=== PATIENT | male | born 1960 | race Caucasian/White ===

== ENCOUNTER 2018-11-26 22:42 | Emergency (ER) | payer MEDICARE ==
--- NOTE | 2018-11-26 23:41 | EDM.PDOC ---
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 He had his voice box removed and he has a trach. This was done 10 days ago. He has been bring out alot of bright red blood from the trach today. Onset: Today Duration: Hour(s): Location: Reports: Chest, Other ( blood coming friom the trach. ) Associated Symptoms: Reports: Cough, Other ( blood coming from the trach. ) Throat Pain Score (Numeric/FACES): 7 - Related Data Allergies Allergy/AdvReac Type Severity Reaction Status Date / Time No Known Allergies Allergy Verified 11/26/18 23:35 Home Meds: Home Meds Acetaminophen 160 mg GTUBE Q6H PRN 11/26/18 [History] Calcium Carbonate/Vitamin D3 [Calcium Carb 500 MG] 1 each GTUBE Q4H PRN [History] Docusate Sodium [Diocto] 10 mg GTUBE DAILY 11/26/18 [History] Lansoprazole 30 mg GTUBE DAILY 11/26/18 [History] Methadone 10 mg GTUBE Q4H PRN 11/26/18 [History] Metoprolol Tartrate 25 mg GTUBE BID 11/26/18 [History] Ranitidine [Zantac] 15 mg GTUBE BID PRN 11/26/18 [History] oxyCODONE [oxyCODONE 20 MG/ML Soln] 10 mg GTUBE Q6H PRN 11/26/18 [History] ED ROS ENT - Review of Systems Review Of Systems: See Below Constitutional: Reports: No Symptoms HEENT: Reports: Other ( blood coming from the trach area. ) Respiratory: Reports: No Symptoms Cardiovascular: Reports: No Symptoms, Other (hypotension) Endocrine: Reports: No Symptoms GI/Abdominal: Reports: No Symptoms : Reports: No Symptoms Musculoskeletal: Reports: No Symptoms Skin: Reports: No Symptoms ED EXAM, ENT - Physical Exam Exam: See Below Text/Narrative:: pt arrived because he had blood coming from his trach. He also had some blood coming from his nose. He has been very weak and dizzy for the past few days. Exam Limited By: No Limitations General Appearance: Alert, Anxious, Moderate Distress, Other (pt states he is having pain. ) Ears: Normal TMs Nose: Normal Inspection Mouth/Throat: Normal Inspection Head: Atraumatic Neck: Other (pt has some dried blood coming from the trach. He evidently coughed up alot of blood and mucous earlier today. ) Respiratory/Chest: No Respiratory Distress Cardiovascular: Regular Rate, Rhythm GI/Abdominal: Soft, Non-Tender (Male) Exam: Deferred Rectal (Males) Exam: Deferred Back: Normal Inspection Extremities: Normal Inspection Neurological: Alert, Oriented, Normal Cognition, Other (pt is not able to communicate well. ) Psychiatric: Depressed Mood Course - Vital Signs Last Recorded V/S: Last Vital Signs Temp 36.7 C 11/26/18 23:54 Pulse 71 11/27/18 00:25 Resp 16 11/27/18 00:25 BP 112/58 L 11/27/18 00:25 Pulse Ox 90 L 11/27/18 00:25 - Orders/Labs/Meds Labs: Laboratory Tests 11/26/18 11/26/18 11/26/18 Range/Units 00:02 00:02 23:52 WBC 14.7 H (4.5-11.0) K/uL RBC 2.99 L (4.30-5.90) M/uL Hgb 9.2 L (12.0-15.0) g/dL Hct 28.0 L (40.0-54.0) % MCV 94 (80-98) fL MCH 31 (27-31) pg MCHC 33 (32-36) % Plt Count 476 H (150-400) K/uL Neut % (Auto) 80 H (36-66) % Lymph % (Auto) 12 L (24-44) % [place] % (Auto) 7 H (2-6) % Eos % (Auto) 1 L (2-4) % Baso % (Auto) 0 (0-1) % Sodium 133 L (140-148) mmol/L Potassium 5.4 H (3.6-5.2) mmol/L Chloride 98 L (100-108) mmol/L Carbon Dioxide 32 (21-32) mmol/L Anion Gap 8.4 (5.0-14.0) mmol/L BUN 35 H (7-18) mg/dL Creatinine 1.1 (0.8-1.3) mg/dL Est Cr Clr Drug Dosing 67.35 mL/min Estimated GFR (MDRD) > 60 (>60) Glucose 94 (74-106) mg/dL Calcium 9.4 (8.5-10.1) mg/dL Total Bilirubin 0.4 (0.2-1.0) mg/dL AST 25 (15-37) U/L ALT 29 (12-78) U/L Alkaline Phosphatase 119 H (46-116) U/L Total Protein 7.4 (6.4-8.2) g/dL Albumin 3.5 (3.4-5.0) g/dL Globulin 3.9 H (2.3-3.5) g/dL Albumin/Globulin Ratio 0.9 L (1.2-2.2) Urine Color Yellow (YELLOW) Urine Appearance Clear (CLEAR) Urine pH 8.5 H (5.0-8.0) Ur Specific [place] 1.015 (1.008-1.030) Urine Protein Negative (NEGATIVE) mg/dL Urine Glucose (UA) Normal (NEGATIVE) mg/dL Urine Ketones Negative (NEGATIVE) mg/dL Urine Occult Blood Negative (NEGATIVE) Urine Nitrite Negative (NEGATIVE) Urine Bilirubin Negative (NEGATIVE) Urine Urobilinogen 1 (0.2-1.0) EU/dL Ur Leukocyte Esterase Negative (NEGATIVE) Urine RBC 0-5 (0-5) Urine WBC 0-5 (0-5) Ur Epithelial Cells Few Amorphous Sediment Few Urine Bacteria Few Urine Mucus Not seen Meds: Medications Discontinued Medications Generic Name Dose Route Start Last Admin Trade Name Arnol PRN Reason Stop Dose Admin Cephalexin 500 mg 11/27/18 01:15 11/27/18 02:04 Keflex 250 Mg/5 Ml Susp PO 11/27/18 01:16 500 mg ONETIME ONE Administration Hydromorphone HCl 1 mg 11/26/18 23:58 11/27/18 00:04 Dilaudid IVPUSH 11/26/18 23:59 1 mg ONETIME ONE Administration Sodium Chloride 1,000 mls @ 999 mls/hr 11/26/18 23:45 11/27/18 00:05 Normal Saline IV 999 mls/hr ASDIRECTED FARZAD Administration Sodium Chloride 1,000 mls @ 500 mls/hr 11/27/18 01:15 11/27/18 02:05 Normal Saline IV 500 mls/hr ASDIRECTED FARZAD Administration - Re-Assessments/Exams Free Text/Narrative Re-Assessment/Exam: 11/27/18 01:17 pt had a mild elevation in his wbc. His bp was low and he was hydrated. He had not done trach care today so that was done and he was showed how to do this. He might have a slight infection in the trach aarea. He was placed on keflex 500mg susp tid. 11/27/18 18:46 pt did not have sig bleeding from the trach and he was taught how to care for it. Departure - Departure Time of Disposition: 02:40 Disposition: Home, Self-Care 01 Condition: Fair Clinical Impression: Tracheostomy care, Tracheostomy hemorrhage, Cancer of larynx, Uses feeding tube - Discharge Information Instructions: How to Change a Cuffed Tracheostomy Tube, How to Suction a Tracheostomy, Tracheostomy and Tracheostomy Tube Safety and Care, Adult, How to Clean a Tracheostomy Tube, Adult Referrals: Robert Ponce MD [Primary Care Provider] - Forms: ED Department Discharge Care Plan Goals: Continue with feedings the same. Use an extra 50 mls of water with each feeding. Take Ativan 1 mg at bedtime to relax. Do good trach care regularly. Keflex 500mg three times a day for 1 week for possible infection in trach. Use a cool mist humidifier at the bedside.
[2018-11-26] MEDS ORDERED: Sodium Chloride 0.9% 1,000 ML IV SCH (23:45)
[2018-11-26] MEDS ORDERED: HYDROmorphone 1 MG/ML Syringe IVPUSH ONE (23:58)
[2018-11-27] MEDS ORDERED: Cephalexin 250 MG/5 ML Susp 100 ML Bottle PO ONE (01:15)
[2018-11-27] MEDS ORDERED: Sodium Chloride 0.9% 1,000 ML IV SCH (01:15)
--- NOTE | 2018-11-27 01:56 | CRLCR ---
INDICATION: Blood from tracheostomy. TECHNIQUE: Chest 1 view COMPARISON: None FINDINGS: Cardiovascular and mediastinum: Tracheostomy tube is centered at the midtrachea level. Normal heart size. Minimal aortic tortuosity. Lungs and pleural spaces: No pleural effusion or pneumothorax. No acute consolidation. Bones and soft tissues: No significant findings. IMPRESSION: Tracheostomy overlies the mid trachea level. No acute pulmonary consolidation. Dictated by Ignacio Quintana MD @ Nov 27 2018 1:52AM Signed by Dr. Ignacio Quintana @ Nov 27 2018 1:53AM
== END 2018-11-27 02:38 | disposition home or self-care (01) ==
LOC: JP.ED 22:42
DX: J95.01 Hemorrhage from tracheostomy stoma (principal); C32.9 Malignant neoplasm of larynx, unspecified; Z79.899 Other long term (current) drug therapy
CPT/HCPCS: 36415; 71045; 80053; 81001; 85025; 96361; 96374; 99283; A9270; J1170; J7030

== ENCOUNTER 2018-12-01 19:51 | Emergency (ER) | payer MEDICARE ==
[2018-12-01] MEDS ORDERED: Sodium Chloride 0.9% 10 ML Syringe FLUSH PRN (21:30)
[2018-12-01] MEDS ORDERED: Metoclopramide 10 MG/2 ML SDV IVPUSH ONE (21:40)
--- NOTE | 2018-12-01 21:54 | CRLCR ---
INDICATION: Purulent cough. Recent tracheostomy tube placement. TECHNIQUE: Chest 2 views COMPARISON: November 27, 2018. FINDINGS: Cardiovascular and mediastinum: Heart size and vasculature are normal in caliber and appearance. Lungs and pleural spaces: Lungs are clear. No sign of infiltrate or mass. No sign of pleural effusion. No pneumothorax. Bones and soft tissues: No significant findings. IMPRESSION: Lungs are clear. No sign of pneumonia. Dictated by Girma Chen MD @ 12/01/2018 9:54:01 PM Dictated by: Girma Chen MD @ 12/01/2018 21:54:03 (Electronically Signed)
--- NOTE | 2018-12-01 22:01 | EDM.PDOC ---
ED HPI GENERAL MEDICAL PROBLEM - General Chief Complaint: Gastrointestinal Problem Stated Complaint: VOMITING Time Seen by Provider: 12/01/18 21:20 Source of Information: Reports: Patient History Limitations: Reports: Other (Recent Tracheostomy. Unable to talk at this time) - History of Present Illness INITIAL COMMENTS - FREE TEXT/NARRATIVE: 58 yr old male present with friend for evaluation of cough and vomiting. Patient was evaluation in the [facility] on November 26 due to bleeding for post surgical tracheostomy site. Patient was discharge home and Keflex for possible localized skin infection. Patient was not complaining of nausea/ vomiting during previous visit. Patient had tracheostomy completed in [facility] due to cancer. Patient denies urinary symptoms, diarrhea or constipations. Patient has been vomiting for the last 2 days with decreased appetite. Patient is able to answer yes and not questions. He has a slight headache but denies fever. - Related Data Allergies Allergy/AdvReac Type Severity Reaction Status Date / Time No Known Allergies Allergy Verified 12/01/18 20:24 Home Meds: Home Meds Acetaminophen 160 mg GTUBE Q6H PRN 11/26/18 [History] Calcium Carbonate/Vitamin D3 [Calcium Carb 500 MG] 1 each GTUBE Q4H PRN [History] Docusate Sodium [Diocto] 10 mg GTUBE DAILY 11/26/18 [History] Lansoprazole 30 mg GTUBE DAILY 11/26/18 [History] Methadone 10 mg GTUBE Q4H PRN 11/26/18 [History] Metoprolol Tartrate 25 mg GTUBE BID 11/26/18 [History] Ranitidine [Zantac] 15 mg GTUBE BID PRN 11/26/18 [History] oxyCODONE [oxyCODONE 20 MG/ML Soln] 10 mg GTUBE Q6H PRN 11/26/18 [History] Metoclopramide [Reglan] 5 - 10 mg PO Q6H PRN 5 Days #20 tab 12/01/18 [Rx] Ondansetron [Zofran ODT] 4 mg PO Q6H PRN 2 Days #4 tab.dis 12/01/18 [Rx] Past Medical History HEENT History: Reports: Impaired Vision Cardiovascular History: Reports: Hypertension Gastrointestinal History: Reports: GERD Musculoskeletal History: Reports: Back Pain, Chronic - Past Surgical History Other HEENT Surgeries/Procedures: 10 days ago had tracheostomy and tube feeding placed Respiratory Surgical History: Reports: Tracheostomy Social & Family History - Family History Family Medical History: Noncontributory - Tobacco Use Smoking Status *Q: Never Smoker - Caffeine Use Caffeine Use: Reports: None ED ROS ENT - Review of Systems Review Of Systems: Unable To Obtain (answers yes and no questions unable to give details) ED EXAM, ENT - Physical Exam Exam: See Below Exam Limited By: Other (tracheostomy and unable to speak but write answers) General Appearance: Alert, Mild Distress, Thin, Other (very oily and unkempt. Smells ketotic ) Eye Exam: Bilateral Eye: EOMI, PERRL Ears: Normal External Exam, Normal Canal, Hearing Grossly Normal, Normal TMs Nose: Normal Inspection, Normal Mucousa, No Blood Mouth/Throat: Normal Inspection (dry ), Normal Gums, Normal Lips, Normal Oropharynx, Normal Teeth Head: Atraumatic, Normocephalic Neck: Normal Inspection (open trach site with purulent mucus noted. Incisions healing well with slgith erythema likely secondary to mucus and chronc wet area) , Supple, Non-Tender, Full Range of Motion Respiratory/Chest: No Respiratory Distress, Lungs Clear, Normal Breath Sounds Cardiovascular: Normal Peripheral Pulses, Regular Rate, Rhythm GI/Abdominal: Normal Bowel Sounds, Soft, Non-Tender, Other (thin) Back: Normal Inspection, Full Range of Motion Extremities: Normal Inspection, Normal Range of Motion, Non-Tender, No Pedal Edema, Normal Capillary Refill Neurological: Alert, Oriented, CN II-XII Intact, Normal Gait, Normal Reflexes Psychiatric: Normal Affect, Normal Mood Skin: Warm, Dry, Intact, Normal Color, No Rash Course - Vital Signs Last Recorded V/S: Last Vital Signs Temp 36.8 C 12/01/18 20:30 Pulse 95 12/01/18 20:30 Resp 14 12/01/18 20:30 BP 96/62 12/01/18 20:30 Pulse Ox 93 L 12/01/18 20:30 - Orders/Labs/Meds Orders: Active Orders 24 hr Category Date Time Status Peripheral IV Care [RC] . DIRECTED Care 12/01/18 21:30 Active Vital Signs [RC] PFP Care 12/01/18 23:01 Ordered UA W/MICROSCOPIC [URIN] Stat Lab 12/01/18 21:40 Ordered Lactated Ringers [Ringers, Lactated] 1,000 ml Med 12/01/18 22:08 Active IV BOLUS Lactated Ringers [Ringers, Lactated] 1,000 ml Med 12/01/18 22:36 Active IV BOLUS Sodium Chloride 0.9% [Saline Flush] Med 12/01/18 21:30 Active 10 ml FLUSH ASDIRECTED PRN Peripheral IV Insertion Adult [OM.PC] Urgent Oth 12/01/18 21:30 Ordered Medication Orders Lactated Ringer's (Ringers, Lactated) 1,000 mls @ 1,000 mls/hr IV BOLUS ONE Stop: 12/01/18 23:07 Last Admin: 12/01/18 22:16 Dose: 1,000 mls/hr Lactated Ringer's (Ringers, Lactated) 1,000 mls @ 1,000 mls/hr IV BOLUS ONE Stop: 12/01/18 23:35 Last Admin: 12/01/18 22:51 Dose: 1,000 mls/hr Sodium Chloride (Saline Flush) 10 ml FLUSH ASDIRECTED PRN PRN Reason: Keep Vein Open Last Admin: 12/01/18 22:16 Dose: 10 ml Labs: Laboratory Tests 12/01/18 12/01/18 12/01/18 Range/Units 21:41 21:41 21:41 WBC 8.0 (4.5-11.0) K/uL RBC 2.95 L (4.30-5.90) M/uL Hgb 9.0 L (12.0-15.0) g/dL Hct 27.5 L (40.0-54.0) % MCV 93 (80-98) fL MCH 31 (27-31) pg MCHC 33 (32-36) % Plt Count 600 H (150-400) K/uL Neut % (Auto) 79 H (36-66) % Lymph % (Auto) 9 L (24-44) % [place] % (Auto) 12 H (2-6) % Eos % (Auto) 0 L (2-4) % Baso % (Auto) 0 (0-1) % Sodium 134 L (140-148) mmol/L Potassium 4.6 (3.6-5.2) mmol/L Chloride 95 L (100-108) mmol/L Carbon Dioxide 26 (21-32) mmol/L Anion Gap 17.6 H (5.0-14.0) mmol/L BUN 23 H (7-18) mg/dL Creatinine 1.1 (0.8-1.3) mg/dL Est Cr Clr Drug Dosing 64.95 mL/min Estimated GFR (MDRD) > 60 (>60) Glucose 76 (74-106) mg/dL Lactic Acid 1.2 (0.4-2.0) mmol/L Calcium 9.4 (8.5-10.1) mg/dL Total Bilirubin 0.6 (0.2-1.0) mg/dL AST 20 (15-37) U/L ALT 35 (12-78) U/L Alkaline Phosphatase 122 H (46-116) U/L C-Reactive Protein 7.22 H (0.0-0.3) mg/dL Total Protein 7.8 (6.4-8.2) g/dL Albumin 3.3 L (3.4-5.0) g/dL Globulin 4.5 H (2.3-3.5) g/dL Albumin/Globulin Ratio 0.7 L (1.2-2.2) Procalcitonin 0.26 ng/mL Ethyl Alcohol mg/dL 12/01/18 Range/Units 22:36 WBC (4.5-11.0) K/uL RBC (4.30-5.90) M/uL Hgb (12.0-15.0) g/dL Hct (40.0-54.0) % MCV (80-98) fL MCH (27-31) pg MCHC (32-36) % Plt Count (150-400) K/uL Neut % (Auto) (36-66) % Lymph % (Auto) (24-44) % [place] % (Auto) (2-6) % Eos % (Auto) (2-4) % Baso % (Auto) (0-1) % Sodium (140-148) mmol/L Potassium (3.6-5.2) mmol/L Chloride (100-108) mmol/L Carbon Dioxide (21-32) mmol/L Anion Gap (5.0-14.0) mmol/L BUN (7-18) mg/dL Creatinine (0.8-1.3) mg/dL Est Cr Clr Drug Dosing mL/min Estimated GFR (MDRD) (>60) Glucose (74-106) mg/dL Lactic Acid (0.4-2.0) mmol/L Calcium (8.5-10.1) mg/dL Total Bilirubin (0.2-1.0) mg/dL AST (15-37) U/L ALT (12-78) U/L Alkaline Phosphatase (46-116) U/L C-Reactive Protein (0.0-0.3) mg/dL Total Protein (6.4-8.2) g/dL Albumin (3.4-5.0) g/dL Globulin (2.3-3.5) g/dL Albumin/Globulin Ratio (1.2-2.2) Procalcitonin ng/mL Ethyl Alcohol < 3 mg/dL Meds: Medications Generic Name Dose Route Start Last Admin Trade Name Freq PRN Reason Stop Dose Admin Lactated Ringer's 1,000 mls @ 1,000 mls/hr 12/01/18 22:08 12/01/18 22:16 Ringers, Lactated IV 12/01/18 23:07 1,000 mls/hr BOLUS ONE Administration Lactated Ringer's 1,000 mls @ 1,000 mls/hr 12/01/18 22:36 12/01/18 22:51 Ringers, Lactated IV 12/01/18 23:35 1,000 mls/hr BOLUS ONE Administration Sodium Chloride 10 ml 12/01/18 21:30 12/01/18 22:16 Saline Flush FLUSH 10 ml ASDIRECTED PRN Administration Keep Vein Open Discontinued Medications Generic Name Dose Route Start Last Admin Trade Name Freq PRN Reason Stop Dose Admin Metoclopramide HCl 5 mg 12/01/18 21:40 12/01/18 22:16 Reglan IVPUSH 12/01/18 21:41 5 mg ONETIME ONE Administration - Radiology Interpretation Free Text/Narrative:: CXR PA/LAT: No acute infiltrate or focal densities noted. - Re-Assessments/Exams Free Text/Narrative Re-Assessment/Exam: reviewed blood work which appears better than patient's examination. WBC normal. Electrolytes fairly normal. LR 1 liter given and will be repeated. Reglan given for nausea. Patient will be discharge home with nausea medication and instruction for return if needed. 12/01/18 22:37 Departure - Departure Time of Disposition: 23:30 Disposition: Home, Self-Care 01 Clinical Impression: Nausea & vomiting, Dehydration, Tracheostomy care - Discharge Information Prescriptions: Metoclopramide [Reglan] 5 - 10 mg PO Q6H PRN 5 Days #20 tab PRN Reason: Nausea/Vomiting Ondansetron [Zofran ODT] 4 mg PO Q6H PRN 2 Days #4 tab.dis PRN Reason: Vomiting Instructions: Nausea, Adult, Rehydration, Adult, Nausea and Vomiting, Adult, Dehydration, Adult Referrals: PCP,None [Primary Care Provider] - 3 Days (call PCP for recheck in 3-5 days to ensrue improving and stomach symptoms resolves) Forms: ED Department Discharge Additional Instructions: 1. Increase fluid intake. 2. Reglan 5-10 mg every 6 hrs for nausea and vomiting. 3. Zofran 4mg ODT ONLY IF NEEDED DUE TO RISK FACTORS WITH METHADONE. 4. Call PCP for recheck this week to ensure improving. 5. Return to ER if new or worsening symptoms or concerns. 6. CXR negative for pneumonia. 7. Green mucus discharged due to trach healing and sluffing of mucus membrane after surgery. - My Orders Last 24 Hours: My Active Orders 12/01/18 21:30 Peripheral IV Care [RC] . DIRECTED Sodium Chloride 0.9% [Saline Flush] 10 ml FLUSH ASDIRECTED PRN Peripheral IV Insertion Adult [OM.PC] Urgent 12/01/18 21:40 UA W/MICROSCOPIC [URIN] Stat 12/01/18 22:08 Lactated Ringers [Ringers, Lactated] 1,000 ml IV BOLUS 12/01/18 22:36 Lactated Ringers [Ringers, Lactated] 1,000 ml IV BOLUS 12/01/18 23:01 Vital Signs [RC] PFP - Assessment/Plan Last 24 Hours: My Active Orders 12/01/18 21:30 Peripheral IV Care [RC] . DIRECTED Sodium Chloride 0.9% [Saline Flush] 10 ml FLUSH ASDIRECTED PRN Peripheral IV Insertion Adult [OM.PC] Urgent 12/01/18 21:40 UA W/MICROSCOPIC [URIN] Stat 12/01/18 22:08 Lactated Ringers [Ringers, Lactated] 1,000 ml IV BOLUS 12/01/18 22:36 Lactated Ringers [Ringers, Lactated] 1,000 ml IV BOLUS 12/01/18 23:01 Vital Signs [RC] PFP
[2018-12-01] MEDS ORDERED: Lactated Ringers 1,000 ML IV ONE ×2 (22:08→22:36)
== END 2018-12-02 05:30 | disposition home or self-care (01) ==
LOC: JP.ED 19:51
DX: E86.0 Dehydration (principal); R11.2 Nausea with vomiting, unspecified; J95.09 Other tracheostomy complication; I10 Essential (primary) hypertension; K21.9 Gastro-esophageal reflux disease without esophagitis; Z79.899 Other long term (current) drug therapy
CPT/HCPCS: 36415; 71046; 80053; 83605; 84145; 85025; 86140; 96361; 96374; 99284; G0480; J2765; J7120